=== PATIENT | female | born 1955 ===

== ENCOUNTER 2017-03-22 17:30 | Emergency (ER) | payer BC ==
[2017-03-22 20:04] LABS: BASO # 0.1 K/uL (0.0-0.2); BASO % 1.1 % (0.0-2.0); EOS # 0.1 K/uL (0.0-0.7); EOS % 2.4 % (0.0-4.0); HEMATOCRIT 37.8 % (34.0-47.0); LYMPH # 2.7 K/uL (1.0-4.3); LYMPH % 45.3 % (20.0-40.0); MEAN CELL VOLUME 87.7 fL (81.0-99.0); MEAN CORPUSCULAR HEMOGLOBIN 29.2 pg (27.0-31.0); MEAN CORPUSCULAR HGB CONC 33.3 g/dL (33.0-37.0); MEAN PLATELET VOLUME 9.3 fL (7.2-11.7); MONO # 0.4 K/uL (0.0-0.8); MONO % 7.7 % (0.0-10.0); NRBC % 0.1 % (0.0-2.0); RED CELL DISTRIBUTION WIDTH 13.6 % (11.5-14.5); WHITE BLOOD COUNT 5.8 K/uL (4.8-10.8)
[2017-03-22 20:10] VITALS: RESP 20
[2017-03-22 20:16] LABS: ALB/GLOB RATIO 1.4 (1.0-2.1); BILIRUBIN,TOTAL 0.5 mg/dL (0.2-1.3); CALCIUM 7.8 mg/dl (8.6-10.4); GFR AFRICAN-AMERICAN > 60; GLUCOSE,RANDOM 95 mg/dL (65-105); TOTAL PROTEIN 6.8 g/dL (6.3-8.3)
[2017-03-22 20:31] LABS: ALKALINE PHOSPHATASE 66 U/L (38-126); ALT/SGPT 26 U/L (9-52); AST/SGOT 23 U/L (14-36); BLOOD UREA NITROGEN 11 mg/dL (7-17); CARBON DIOXIDE 23 mmol/L (22-30); CHLORIDE 107 mmol/L (98-107); POTASSIUM 4.2 mmol/L (3.6-5.2); SODIUM 141 mmol/L (132-148)
--- NOTE | 2017-03-22 20:44 | CT ---
EXAM: CT Head Without Intravenous Contrast CLINICAL HISTORY: 61 years old, female; Signs and symptoms; Dizziness TECHNIQUE: Axial computed tomography images of the head/brain without intravenous contrast. All CT scans at this facility use one or more dose reduction techniques, viz.: automated exposure control; ma/kV adjustment per patient size (including targeted exams where dose is matched to indication; i.e. head); or iterative reconstruction technique. Coronal and sagittal reformatted images were created and reviewed. COMPARISON: No relevant prior studies available. FINDINGS: Brain: Minimal atrophy. No intracranial hemorrhage. No mass. No definite edema. Ventricles: No hydrocephalus. Bones/joints: No acute fracture. Soft tissues: Unremarkable. Sinuses: No acute sinusitis. Mastoid air cells: No mastoid effusion. Orbits: Unremarkable as visualized. IMPRESSION: 1. No acute intracranial abnormality. 2. Incidental/non-acute findings are described above.
[2017-03-22 20:47] LABS: RBC URINE 3 /hpf (0-3); URINE BACTERIA RARE (<OCC); URINE BILIRUBIN NEGATIVE (NEGATIVE); URINE COLOR Straw (YELLOW); URINE GLUCOSE (UA) NORMAL (Normal); URINE KETONE NEGATIVE (NEGATIVE); URINE LEUKOCYTE ESTERASE NEG Leu/uL (Negative); URINE PROTEIN NEGATIVE (NEGATIVE); URINE UROBILINOGEN NORMAL mg/dL (0.2-1.0); WBC URINE 1 /hpf (0-5)
--- NOTE | 2017-03-22 20:49 | C.PDOC ---
History Of Present Illness 61 y/o female presents to ED with complaints of dizziness and elevated blood pressure while at therapy earlier today. Patient is on physical therapy for left knee surgery she had 3 weeks ago. Patient also complaints of headache and dizziness with associated nausea. Patient denies prior history of similar symptoms and denies visual changes, syncope, chest pain, sob or any other complaints at this time. Time Seen by Provider: 03/22/17 18:19 Chief Complaint (Nursing): Headache History Per: Patient History/Exam Limitations: no limitations Onset/Duration Of Symptoms: Hrs Current Symptoms Are (Timing): Still Present Past Medical History Reviewed: Historical Data, Nursing Documentation, Vital Signs Vital Signs: Last Vital Signs Temp 98.1 F 03/22/17 17:36 Pulse 60 03/22/17 21:43 Resp 20 03/22/17 21:43 BP 174/76 H 03/22/17 21:43 Pulse Ox 95 03/22/17 22:16 - Medical History PMH: Hypothyroidism Surgical History: No Surg Hx Family History: States: No Known Family Hx - Social History Hx Tobacco Use: No Hx Alcohol Use: No Hx Substance Use: No - Immunization History Hx Tetanus Toxoid Vaccination: No Hx Influenza Vaccination: Yes Hx Pneumococcal Vaccination: No Review Of Systems Constitutional: Negative for: Fever, Chills Eyes: Negative for: Vision Change Gastrointestinal: Positive for: Nausea. Negative for: Vomiting Skin: Negative for: Rash Neurological: Positive for: Headache, Dizziness. Negative for: Weakness, Numbness Physical Exam - Physical Exam Appears: Non-toxic, No Acute Distress Skin: Normal Color, Warm, Dry, No Rash Head: Atraumatic, Normacephalic Eye(s): bilateral: Normal Inspection Oral Mucosa: Moist Neck: Supple Cardiovascular: Rhythm Regular, Other Respiratory: Normal Breath Sounds, No Rales, No Rhonchi, No Wheezing Gastrointestinal/Abdominal: Soft, No Tenderness, No Guarding, No Rebound Extremity: No Deformity, No Swelling, Other (Healing left anterior knee surgical scar (-)drainage (-)discharge) Extremity: Bilateral: Normal ROM Neurological/Psych: Oriented x3, Normal Motor, Normal Sensation Gait: Steady ED Course And Treatment - Laboratory Results Result Diagrams: 03/22/17 19:57 03/22/17 19:57 ECG: Interpreted By Me, Viewed By Me ECG Rhythm: Sinus Bradycardia Interpretation Of ECG: Normal intervals. Normal access No ST/T wave changes Rate From EC (BPM) O2 Sat by Pulse Oximetry: 95 (RA) - CT Scan/US CT Scan head w/o contrast Other Rad Studies (CT/US): Read By Radiologist, Radiology Report Reviewed CT/US Interpretation: IMPRESSION: 1. No acute intracranial abnormality. 2. Incidental/non-acute findings are described above. Medical Decision Making Medical Decision Making: Assessment: Dizziness On re -evaluation patient states dizziness resolved but is still complaining of headache Pain medication ordered 2214 - patient reevaluated and now with improvement and resolution of symptoms. States she recently stopped lyrica and wonder if that contributes to current symptoms. Will discharge and advise to follow up with pmd tomorrow. Disposition Counseled Patient/Family Regarding: Studies Performed, Diagnosis, Need For Followup - Disposition Referrals: Chance Kunz Jr., MD [Medical Doctor] - Disposition: HOME/ ROUTINE Disposition Time: 22:17 Condition: IMPROVED Additional Instructions: see your doctor tomorrow continue medications at home return to hospital if symptoms worsens or progress Prescriptions: Meclizine [Meclizine*] 25 mg PO TID PRN #15 tab PRN Reason: Dizziness Instructions: Acute Headache (DC), Dizziness (ED) Forms: [facility] (Yi), General Discharge Instructions Print Language: KOREAN - Clinical Impression Clinical Impression: Headache, Dizziness - Scribe Statement The provider has reviewed the documentation as recorded by the Valdo Rocha ' All medical record entries made by the Valdo were at my direction and personally dictated by me. I have reviewed the chart and agree that the record accurately reflects my personal performance of the history, physical exam, medical decision making, and the department course for this patient. I have also personally directed, reviewed, and agree with the discharge instructions and disposition.
[2017-03-22 20:50] LABS: URINE BLOOD TRACE (NEGATIVE)
[2017-03-22] MEDS ORDERED: Labetalol 5 mg/ml Inj 20ML IV STA (21:28)
[2017-03-22] MEDS ORDERED: Labetalol 25mg/5ml Syringe ONE (21:40)
[2017-03-22 21:45] VITALS: PULSE 60
[2017-03-22 22:54] VITALS: BP 170/81; TEMP 98.7; O2SAT 98
--- NOTE | 2017-03-23 07:48 | RAD ---
PROCEDURE: CHEST RADIOGRAPH, 1 VIEW HISTORY: chest pain COMPARISON: None available. FINDINGS: LUNGS: No definite acute infiltrate is identified however there is crowding of the bronchovascular markings at the bilateral bases. This appears to be a function of somewhat limited inspiratory volume. PLEURA: No pneumothorax or pleural fluid seen. CARDIOVASCULAR: Cardiac size appears normal. There is no pulmonary vascular derangement identified. OSSEOUS STRUCTURES: No significant abnormalities. VISUALIZED UPPER ABDOMEN: Limited elevation left hemidiaphragm is noted of uncertain origin. OTHER FINDINGS: None. IMPRESSION: No acute infiltrate or pleural effusion bilaterally. Crowding of the bronchovascular markings is appreciated with somewhat limited inspiratory volume identified.
--- NOTE | 2017-03-25 11:57 | CARD ---
APPROVED REPORT EKG Measurement Heart [id number] <Conclusion> Sinus bradycardia with marked sinus arrhythmia Otherwise normal ECG
== END 2017-03-22 22:54 | disposition home or self-care (01) ==
LOC: C.ER 17:30
DX: R51 Headache (principal); R42 Dizziness and giddiness
CPT/HCPCS: 70450; 71010; 80053; 81001; 84484; 85025; 93005; 96374; 96375; 99285; J1885

== ENCOUNTER 2018-02-18 12:53 | Emergency (ER) | payer OTHER, BC ==
[2018-02-18 13:09] VITALS: RESP 20
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
--- NOTE | 2018-02-18 14:43 | CT ---
Date of service: 02/18/2018 PROCEDURE: CT HEAD WITHOUT CONTRAST. HISTORY: R/O Bleed COMPARISON: Noncontrast head CT 03/22/2017. TECHNIQUE: Axial computed tomography images were obtained through the head/brain without intravenous contrast. Radiation dose: Total exam DLP = 934.68 mGy-cm. This CT exam was performed using one or more of the following dose reduction techniques: Automated exposure control, adjustment of the mA and/or kV according to patient size, and/or use of iterative reconstruction technique. FINDINGS: HEMORRHAGE: No intracranial hemorrhage. BRAIN: Normal guardado-white matter differentiation and density are appreciated throughout the cerebrum and cerebellum with the brainstem appearing unremarkable as well. There is no mass effect. There is no suspicious extra-axial fluid collection and the midline brain anatomy appears diffusely unremarkable. VENTRICLES: Unremarkable. No hydrocephalus. CALVARIUM: No destructive bony lesion or displaced fracture identified including through the skullbase. Minimal cavernous ICA atherosclerosis identified bilaterally. PARANASAL SINUSES: Well developed and aerated as imaged. MASTOID AIR CELLS: Unremarkable as visualized. No inflammatory changes. OTHER FINDINGS: None. IMPRESSION: Unremarkable unenhanced head CT without significant interval change from prior CT dated 03/22/2017.
[2018-02-18 14:53] VITALS: BP 173/90; PULSE 76; TEMP 98.2
[2018-02-18 18:37] VITALS: O2SAT 98
== END 2018-02-18 14:59 | disposition home or self-care (01) ==
LOC: C.ER 12:53
DX: S09.90XA Unspecified injury of head, initial encounter (principal); W22.8XXA Striking against or struck by other objects, initial encounter; Y92.89 Other specified places as the place of occurrence of the external cause; Y99.0 Civilian activity done for income or pay

== ENCOUNTER 2018-05-24 10:51 | Outpatient (CLI) | payer BC | END 2018-05-24 10:52 | disposition home or self-care (01) | LOC: C.VASC 10:51 ==

== ENCOUNTER 2018-05-29 07:07 | Outpatient (CLI) | payer BC | END 2018-05-29 07:08 | disposition home or self-care (01) | LOC: C.NUCMED 07:07 ==

== ENCOUNTER 2018-06-01 07:14 | Outpatient (CLI) | payer BC | END 2018-06-01 07:15 | disposition home or self-care (01) | LOC: C.RADH 07:14 ==